=== PATIENT | male | born 1980 | race Caucasian/White ===

== ENCOUNTER 2019-07-31 17:00 | Emergency (ER) | payer OTHER ==
[2019-07-31] MEDS ORDERED: Bacitracin 1 PK ONE (17:29)
[2019-07-31] MEDS ORDERED: Adacel (T-DAP) 0.5 ML SYRINGE ONE (17:30)
[2019-07-31] MEDS ORDERED: Sulfameth/Trimethoprim DS 800-160mg TAB ONE (17:41)
== END 2019-07-31 17:40 ==
LOC: NAV ERS 17:00
DX: S61.212A Laceration without foreign body of right middle finger without damage to nail, initial encounter (principal); Z23 Encounter for immunization; W26.8XXA Contact with other sharp object(s), not elsewhere classified, initial encounter
CPT/HCPCS: 90471; 90715; 99283